=== PATIENT | female | born 1955 | race Caucasian/White ===

== ENCOUNTER 2017-05-03 10:56 | Emergency (ER) | payer SELFPAY ==
--- NOTE | 2017-05-03 11:07 | EDPHY ---
H & P Stated Complaint: Chest injury, painful breathing Time Seen by Provider: 05/03/17 11:06 HPI/ROS: CC: Left chest wall pain status post fall HPI: This is a 61-year-old female who tripped and fell on the sidewalk. There is no antecedent syncope such as chest pain, palpitations, diaphoresis score nausea vomiting. She went to walk from the grass to the sidewalk. As such she slipped and fell landing bluntly on the left posterior aspect of the chest wall. There is no curve or age that she sustained direct, more focal injury. Also, she denies any other injuries such as head, neck, pelvis, or extremity. This all just happened prior to admission. She had the wind knocked out of her. She has since been able to breathe though splint because it is somewhat uncomfortable. She has not heard any crepitus. There has been no nausea vomiting. Pt queried and denies: prior hx of substance abuse, family history of substance abuse, or current or prior psychiatric history. ROS: Constitutional - feeling well before the fall Head no injury or hematoma. Eyes - no diplopia, blurred vision. ENT - no earache, no fluid from ear. No fluid from nose. No facial injury Neck: no pain or decreased ROM Thorax did not injury to chest or ribs or spine, no shortness of breath Abdominal - denies any abdomen, or back injury. No nausea. Musculoskeletal - no joint or muscle pain. Integument - no lacerations Neurological - no headache, numbness, tingling, or paresthesias. No focal motor weakness. No amnesia or LOC. No fluid from ear or nose 10 point ROS otherwise negative Source: Patient Exam Limitations: No limitations - Medical/Surgical History Hx Asthma: No Hx Chronic Respiratory Disease: No Hx Diabetes: No Hx Cardiac Disease: No Hx Renal Disease: No Hx Cirrhosis: No Hx Alcoholism: No Hx HIV/AIDS: No Hx Splenectomy or Spleen Trauma: No Other PMH: No Pcp, thus has not had any screening healthcare evaluations in many decades - Social History Smoking Status: Never smoked Alcohol Use: None Drug Use: None - Physical Exam Exam: Constitutional: Well-nourished, well-developed, no acute distress, though holding herself in a gingerly stiff position splinting the left chest with movement [No odor of alcohol] Neck: Nontender without step off, with full active range of motion without pain Eyes: Pupils equal and reactive. ENT: Ears are without hemotympanum. Mouth exam, atraumatic. Chest: Tender to the posterior aspect of the left chest wall from the mid axillary line to the mid scapular line. She is able to take a full breath although complains of pain. There has been no clicking or subcutaneous emphysema. She denies any pain in the anterior abdomen or nausea or vomiting Back: Nontender thoracic and lumbar sacral spine Abdomen: Nontender. No organomegaly. No abrasions Musculoskeletal: Moves all extremities without difficulty. No joint swelling. No ecchymosis. No deformities. Skin: No observed abrasions or lacerations. Skin is warm and dry. Normal motor and sensation Neuro: Alert and oriented with a GCS of 15. No acute distress. No headache. Psych: Normal mood and affect. Constitutional: Initial Vital Signs Temperature (C) 36.5 C 05/03/17 11:04 Heart Rate 87 05/03/17 11:04 Respiratory Rate 20 05/03/17 11:04 Blood Pressure 149/97 H 05/03/17 11:04 O2 Sat (%) 97 05/03/17 11:04 O2 Delivery Mode Room Air Allergies/Adverse Reactions: Tetanus Vaccines and Toxoid [Tetanus Vaccines & Toxoid] Allergy (Verified 11:03) Sulfa (Sulfonamide Antibiotics) Adverse Reaction (Verified 05/03/17 11:03) Hives Home Medications: Medication Instructions Recorded Multi-Vitamin Daily 05/03/17 oxyCODONE HCL/ACETAMINOPHEN 1 - 2 each PO Q6 PRN #20 tablet 05/03/17 [Percocet 5-325 mg Tablet] Medical Decision Making - Diagnostics Imaging Results: Imaging Impressions Ribs w/Chest X-Ray 05/03/17 11:16 Impression: 1. Acute fractures of the left fourth, sixth, and seventh ribs. 2. Minimal left basilar atelectasis. No effusion. ED Course/Re-evaluation: C-spine is clear by nexus criteria. No head injury per se. She opted for parental pain medicines and was given 6 mg of subcu morphine with so as to ensure improvement. At that time as when I was able to examine her abdomen as she was then more comfortable enough to the point where she is able to lay back. The abdomen was benign. Ultimately her urine showed small amounts my microhematuria, nothing that would require CT scanning. We discussed pain management going forward, prudent positioning at home as well as cough and deep breathe and Colace therapy Differential Diagnosis: Differential diagnosis includes but is not limited to Thorax: Rib fracture, hemothorax, pneumothorax, tension pneumothorax. Spine: Thoracic and lumbar sacral spine fracture or dislocation Abdominal/pelvis: Splenic injury or hematoma or laceration, liver laceration or hematoma. Contusion of duodenum, renal contusion, hollow viscus injury, pelvic fracture, intra-abdominal bleeding. - Data Points Laboratory Results: 05/03/17 11:55 Urine Color YELLOW Urine Appearance CLEAR Urine pH 7.0 (5.0-7.5) Ur Specific [place] 1.010 (1.002-1.030) Urine Protein TRACE H (NEGATIVE) Urine Ketones NEGATIVE (NEGATIVE) Urine Blood 1+ H (NEGATIVE) Urine Nitrate NEGATIVE (NEGATIVE) Urine Bilirubin NEGATIVE (NEGATIVE) Urine Urobilinogen 0.2 EU EU (0.2-1.0) Ur Leukocyte Esterase NEGATIVE (NEGATIVE) Urine RBC 15-25 /hpf H /hpf (0-3) Urine WBC 3-5 /hpf H /hpf (0-3) Ur Epithelial Cells 1+ /lpf /lpf (NONE-1+) Urine Bacteria 1+ /hpf H /hpf (NONE SEEN) Hyaline Casts 3-5 /lpf H /lpf (0-1) Urine Mucus 1+ /lpf /lpf (NONE-1+) Urine Glucose NEGATIVE (NEGATIVE) Medications Given: Discontinued Medications Morphine Sulfate (Morphine) 6 mg SC EDNOW ONE Stop: 05/03/17 11:16 Last Admin: 05/03/17 11:44 Dose: 6 mg Morphine Sulfate (Morphine) 6 mg SC EDNOW ONE Stop: 05/03/17 11:29 Last Admin: 05/03/17 11:46 Dose: Not Given Departure - Departure Disposition: Home, Routine, Self-Care Clinical Impression: Closed rib fracture Qualifiers: Encounter type: initial encounter Rib fracture type: single rib Laterality: left Qualified Code(s): S22.32XA - Fracture of one rib, left side, initial encounter for closed fracture Condition: Good Instructions: Rib Fracture (ED) Additional Instructions: Cough and deep breathe every hour while awake. Take Colace to prevent from getting constipated on the pain medicines Recheck with family doctor in the next 3-5 days Return if fever, nausea, or abdominal pain, or worsening pain Referrals: NONE *PRIMARY CARE P,. [Primary Care Provider] - As per Instructions Deborah Dhaliwal MD [Medical Doctor] - As per Instructions Prescriptions: oxyCODONE HCL/ACETAMINOPHEN [Percocet 5-325 mg Tablet] 1 - 2 each PO Q6 PRN #20 tablet PRN Reason: moderate to severe pain
[2017-05-03 12:13] VITALS: BP 138/87; PULSE 78; RESP 16; TEMP 98.6; O2SAT 94
== END 2017-05-03 12:50 | disposition home or self-care (01) ==
LOC: CED 10:56
DX: S22.32XA Fracture of one rib, left side, initial encounter for closed fracture (principal); W01.0XXA Fall on same level from slipping, tripping and stumbling without subsequent striking against object, initial encounter; Y99.8 Other external cause status; Y93.01 Activity, walking, marching and hiking
CPT/HCPCS: 71111-PO; 81003-PO; 81015-PO

== ENCOUNTER 2017-05-04 15:10 | Emergency (ER) | payer SELFPAY ==
[2017-05-04 15:21] VITALS: BP 133/78; PULSE 76; RESP 18; TEMP 98.6; O2SAT 93
--- NOTE | 2017-05-04 16:06 | EDPHY ---
H & P Time Seen by Provider: 05/04/17 15:17 HPI/ROS: CC: Here for recheck regarding broken ribs. HPI: 61-year-old female who had tripped on the sidewalk yesterday landing on the left thoracic area without the arm of the Y is asked to return for follow- up recheck. Of note is that she had had for fractured ribs seen on yesterday's film with minimal atelectasis. No evidence of hemopneumothorax or pulmonary contusion. In the interim she has been doing somewhat well. Pain medicines are working though not great. She occasionally feels the click of the rib when she takes in a particularly deep breath. She was able to nap somewhat through most of the night. Fortunately in the interim she has not developed any sense of shortness of breath or increasing difficulty with painful breathing beyond that of the injury nor associated fevers or chills. Likewise there is no abdominal discomfort nausea or vomiting. Pt queried and denies: no prior hx of substance abuse, family history of substance abuse, or current or prior psychiatric history. ROS: Constitutional - feeling well before the fall Head no injury or hematoma. Did not strike head Eyes - no diplopia, blurred vision. ENT - no earache, no fluid from ear. No fluid from nose. No facial injury Neck - While she really had no neck pain yesterday as events developed some right-sided strap muscle discomfort. No midline tenderness or pain Thorax - did not injury to chest or ribs or spine, no shortness of breath Abdominal - denies any abdomen, or back injury. No nausea. Musculoskeletal - no joint or muscle pain. Integument - no lacerations Neurological - no headache, numbness, tingling, or paresthesias. No focal motor weakness. No amnesia or LOC. No fluid from ear or nose 10 point ROS otherwise negative Smoking Status: Never smoked Physical Exam: Constitutional: Well-nourished, well-developed, no acute distress. No odor of alcohol. As a enter the room she is standing then takes seat on the stretcher somewhat side settle like with the left thoracic area, the site of injury, resting area gets the back of the stretcher Neck: Full, active range of motion without midline pain Eyes: Pupils equal and reactive. Chest: Ribs are tender on the left chest wall but I do not feel any crepitus. I do hear a sense of sonorous changes from her deep breathing deeply as the air passages open up and close as she is splinting the left chest when she breathes. There is some tenderness to the anterior chest wall as well as the tail of the L breast Back: Nontender thoracic and lumbar sacral spine Abdomen: Nontender. No organomegaly. No abrasions Neuro: Alert and oriented with a GCS of 15. No acute distress. No headache. Constitutional: Initial Vital Signs Temperature (C) 37.0 C 05/04/17 15:16 Heart Rate 76 05/04/17 15:16 Respiratory Rate 18 05/04/17 15:16 Blood Pressure 133/78 H 05/04/17 15:16 O2 Sat (%) 93 05/04/17 15:16 O2 Delivery Mode Room Air Allergies/Adverse Reactions: Tetanus Vaccines and Toxoid [Tetanus Vaccines & Toxoid] Allergy (Verified 11:03) Sulfa (Sulfonamide Antibiotics) Adverse Reaction (Verified 05/03/17 11:03) Hives Home Medications: Medication Instructions Recorded Multi-Vitamin Daily 05/03/17 oxyCODONE HCL/ACETAMINOPHEN 1 - 2 each PO Q6 PRN #20 tablet 05/03/17 [Percocet 5-325 mg Tablet] Medical Decision Making - Diagnostics Imaging Results: Imaging Impressions Chest X-Ray 05/04/17 15:17 Impression: Increasing atelectasis, left lower lobe. No interval development of pneumothorax or pleural hematoma.. Films reviewed by me on the [employer] system as well as reviewing the x-ray report ED Course/Re-evaluation: She was not given any additional medications as she was already taking her pain medicines from yesterday. Chest film results reviewed with patient as the need for her to take additional breathing. We gave her an incentive spirometer to go. While she does need a new family physician which would appropriately be Dr. Dhaliwal from yesterday, I have indicated to her it is time to see a general surgeon for follow-up due to the number fractured ribs. Thereby she has been to Dr. Bennett Differential Diagnosis: Differential diagnosis includes but is not limited to Cervical spine: Fracture spine, dislocation spine, muscle strain Thorax: Rib fracture, hemothorax, pneumothorax, tension pneumothorax, aortic dissection, spine fracture. Abdominal/pelvis: Splenic injury or hematoma or laceration, liver laceration or hematoma. Contusion of duodenum, renal contusion, hollow viscus injury, pelvic fracture, intra-abdominal bleeding. Departure - Departure Disposition: Home, Routine, Self-Care Clinical Impression: Atelectasis Multiple fractures of ribs Qualifiers: Encounter type: subsequent encounter Fracture type: closed Laterality: left Fracture healing: with routine healing Qualified Code(s): S22.42XD - Multiple fractures of ribs, left side, subsequent encounter for fracture with routine healing Condition: Good Instructions: Rib Fracture (ED) Additional Instructions: Continue her pain medicines Incentive spirometry every hour while awake and in the clinical rehab liaison when you get up to take medicines or use the bathroom Routine immediately if he develops fever Referrals: Augustus Bennett MD [Medical Doctor] - 1-2 days without fail
== END 2017-05-04 16:20 | disposition home or self-care (01) ==
LOC: CED 15:10
DX: S22.42XD Multiple fractures of ribs, left side, subsequent encounter for fracture with routine healing (principal); J98.11 Atelectasis; W10.1XXD Fall (on)(from) sidewalk curb, subsequent encounter
CPT/HCPCS: 71046-PO